=== PATIENT | female | born 1970 | race Caucasian/White ===

== ENCOUNTER 2017-04-15 15:36 | Outpatient (CLI) | payer OTHER ==
--- NOTE | 2017-04-27 19:21 | Mammography Report ---
DIGITAL SCREENING MAMMOGRAM: 04/15/2017 CLINICAL INDICATION: A 46-year-old with history of late childbearing for screening. COMPARISON: Films from [place], [place] dated 02/24/2016, 01/01/2015, 12/26/2014, 09/26/2013, 09/21/2012. TECHNIQUE: Routine CC and MLO projections were obtained of the breasts. The breasts again demonstrate scattered fibroglandular densities bilaterally. Coarse and punctate, t ypically benign calcifications are present. No suspicious masses, clustered microcalcifications, or regions of architectural distortion are identified. IMPRESSION: BENIGN FINDINGS. RECOMMENDATION: ROUTINE ANNUAL SCREENING UNLESS OTHERWISE CLINICALLY INDICATED. BIRADS CATEGORY: 2, BENIGN FINDINGS. STANDARD QUALIFYING STATEMENTS 1. This examination was reviewed with the aid of Computed-Aided Detection (CAD). 2. A negative or benign imaging report should not delay biopsy if clinically suspicious findings are present. Consider surgical consultation if warranted. More than 5% of cancers are not identified b y imaging. 3. Dense breasts may obscure an underlying neoplasm. JOB #: [id number] EXT JOB #:[id number]
== END 2017-04-15 15:37 | disposition home or self-care (01) ==
LOC: DI.N 15:36
PROVIDERS: ATTEND Physician Assistant Medical
DX: Z12.31 Encounter for screening mammogram for malignant neoplasm of breast (principal)
CPT/HCPCS: 77067

== ENCOUNTER 2018-05-10 16:03 | Outpatient (CLI) | payer OTHER ==
--- NOTE | 2018-05-11 09:59 | Mammography Report ---
Reason: SCREENING MAMMO Procedure Date: 05/10/2018 Accession Number: [id number] / [id number] Procedure: MGN - Screening Mammo Dig Bilat CPT Code: FULL RESULT: EXAM: Screening Mammo Dig Bilat DATE: 05/10/2018 4:25 PM CLINICAL HISTORY: 47-year-old female with history of early menses and late childbearing. TECHNIQUE: Bilateral CC and MLO views were obtained. COMPARISON: 04/15/2017, 02/24/2016, 01/01/2015, 12/26/2014. FINDINGS: The breasts demonstrate scattered fibroglandular densities bilaterally. Typically benign coarse calcifications are seen bilaterally. No suspicious masses, clustered microcalcifications, or regions of architectural distortion are identified. IMPRESSION: Benign findings RECOMMENDATION: Routine annual screening unless otherwise clinically indicated. BIRADS CATEGORY 2: Benign findings STANDARD QUALIFYING STATEMENTS: 1. This examination was not reviewed with the aid of Computer-Aided Detection (CAD). 2. A negative or benign imaging report should not delay biopsy if clinically suspicious findings are present. Consider surgical consultation if warrented. More than 5% of cancers are not identified by imaging. 3. Dense breasts may obscure an underlying neoplasm.
== END 2018-05-10 16:04 | disposition home or self-care (01) ==
LOC: DI.N 16:03
DX: Z12.31 Encounter for screening mammogram for malignant neoplasm of breast (principal)
CPT/HCPCS: 77067

== ENCOUNTER 2019-06-23 16:01 | Outpatient (CLI) | payer OTHER ==
--- NOTE | 2019-06-26 08:49 | Mammography Report ---
Reason: SCREENING MAMMO Procedure Date: 06/23/2019 Accession Number: [id number] / [id number] Procedure: MGN - Screening Mammo Dig Bilat CPT Code: Final Report FULL RESULT: EXAM: Screening Mammo Dig Bilat DATE: 06/23/2019 4:20 PM CLINICAL HISTORY: Routine screening. No reported personal or family history of breast cancer. TECHNIQUE: (B) - Bilateral CC and MLO views were obtained. COMPARISON: 05/10/2018 through 09/21/2012. PARENCHYMAL PATTERN: (A) - The breasts demonstrate scattered fibroglandular densities bilaterally. FINDINGS: Right breast: There is an 11 mm one view asymmetry seen lateral right CC view only, 9.5 cm from the nipple. No suspicious calcifications or areas of distortion. Left breast: There are no suspicious masses, calcifications, or areas of distortion. IMPRESSION: Right breast: 11 mm one view asymmetry lateral right breast as detailed. Incomplete examination. BI-RADS category 0. Additional imaging and possible ultrasound recommended. Left breast: Negative. BI-RADS Category 1. Recommend annual screening mammography. RECOMMENDATION: ([facility]) - Additional views using both Mammography and Ultrasound recommended. BI-RADS CATEGORY: (0) - Incomplete Examination - need additional evaluation. STANDARD QUALIFYING STATEMENTS: 1. This examination was not reviewed with the aid of Computer-Aided Detection (CAD). 2. A negative or benign imaging report should not preclude biopsy if clinically suspicious findings are present. 3. Dense breasts may obscure an underlying neoplasm. 4. This examination was reviewed without the aid of 3D breast imaging (tomosynthesis).
== END 2019-06-23 16:02 | disposition home or self-care (01) ==
LOC: DI.N 16:01
DX: Z12.31 Encounter for screening mammogram for malignant neoplasm of breast (principal); R92.8 Other abnormal and inconclusive findings on diagnostic imaging of breast
CPT/HCPCS: 77067

== ENCOUNTER 2019-07-12 09:00 | Outpatient (CLI) | payer BC, OTHER ==
--- NOTE | 2019-07-12 10:43 | Mammography Report ---
Reason: ABN MAMMO - SPEC VIEWS RT Procedure Date: 07/12/2019 Accession Number: [id number] / [id number] Procedure: DEVONTE - Diag Special Views Dig RT CPT Code: Final Report FULL RESULT: EXAM: Diag Special Views Dig RT DATE: 07/12/2019 10:00 AM CLINICAL HISTORY: The patient is an asymptomatic 48-year-old female recalled from screening mammogram (06/23/2019) for diagnostic evaluation of the right breast. TECHNIQUE: (B) - Bilateral CC and MLO views were obtained. COMPARISON: 05/10/2018,, 02/24/2016, 12/26/2014, 04/15/2017 PARENCHYMAL PATTERN: (A) - The breasts demonstrate scattered fibroglandular densities bilaterally. FINDINGS: The described asymmetry dissipates on targeted diagnostic imaging. The appearance is consistent with overlapping glandular tissue. The parenchymal pattern is stable since prior studies given interval involution. There are no suspicious masses, calcifications, or areas of distortion. IMPRESSION: Benign findings. BI-RADS category 2. RECOMMENDATION: (ANNUAL) - Recommend routine annual screening mammography. BI-RADS CATEGORY: (2) - Benign Findings. STANDARD QUALIFYING STATEMENTS: 1. This examination was not reviewed with the aid of Computer-Aided Detection (CAD). 2. A negative or benign imaging report should not preclude biopsy if clinically suspicious findings are present. 3. Dense breasts may obscure an underlying neoplasm. 4. This examination was reviewed the aid of 3D breast imaging (tomosynthesis).
== END 2019-07-12 09:01 | disposition home or self-care (01) ==
LOC: DI 09:00
PROVIDERS: ATTEND Physician Assistant Medical
DX: R92.8 Other abnormal and inconclusive findings on diagnostic imaging of breast (principal)

== ENCOUNTER 2020-08-28 15:02 | Outpatient (CLI) | payer OTHER ==
--- NOTE | 2020-08-29 08:00 | Mammography Report ---
BILATERAL DIGITAL SCREENING MAMMOGRAM 3D/2D: 08/28/2020 CLINICAL: Routine screening. Comparison is made to exams dated: 07/12/2019 mammogram, 06/23/2019 mammogram, 05/10/2018 mammogram, mammogram, and 02/24/2016 mammogram - [facility]. There are scattered fibr oglandular elements in both breasts. There is a 5 mm round asymmetry with a circumscribed margin in the left breast at 7 o'clock middle de pth. This is increased in size. No other significant masses, calcifications, or other findings are seen in either breast. IMPRESSION: INCOMPLETE: NEEDS ADDITIONAL IMAGING EVALUATION The 5 mm round asymmetry in the left breast most likely is a cyst and is indeterminate. Additional v iews with possible ultrasound are recommended. This exam was interpreted at Station ID: [id number]. NOTE: For mammograms, a report in lay terms will be sent to the patient. Approximately 15% of breast malignancies will not be visualized mammographically. In the management of a palpable breast mass, a negative mammogram must not discourage biopsy of a clinically suspicious lesion. Electronically Signed By: Chapis miranda/jairo:08/28/2020 17:15:34 ACR BI-RADS Category 0: Incomplete 3340F PARENCHYMAL PATTERN: (A) - The breast(s) demonstrate(s) scattered fibroglandular densities. BI-RADS CATEGORY: (0) - 0 Mammo and [place] [id number] Immediate follow-up LATERALITY: (B)
== END 2020-08-28 15:03 | disposition home or self-care (01) ==
LOC: DI.N 15:02
DX: Z12.31 Encounter for screening mammogram for malignant neoplasm of breast (principal); N64.89 Other specified disorders of breast
CPT/HCPCS: 77067

== ENCOUNTER 2020-09-25 08:46 | Outpatient (CLI) | payer OTHER ==
--- NOTE | 2020-09-26 09:47 | Mammography Report ---
UNILATERAL LEFT DIGITAL DIAGNOSTIC MAMMOGRAM 3D/2D: 09/25/2020 CLINICAL: Additional evaluation requested from prior study. Patient returns today to evaluate an asym metry in left breast. Comparison is made to exams dated: 08/28/2020 mammogram, 07/12/2019 mammogram, 06/23/2019 mammogram, mammogram, 04/15/2017 mammogram, and 02/24/2016 mammogram - [facility]. The re are scattered fibroglandular elements in left breast. There is a 5 mm round asymmetry with a circumscribed margin in the left breast at 7 o'clock middle de pth. This is confirmed in additional views. This has increased in size since remote prior studies. No other significant masses or calcifications are seen in the breast. IMPRESSION: INCOMPLETE: NEEDS ADDITIONAL IMAGING EVALUATION The 5 mm round asymmetry in the left breast most likely is a cyst but remains indeterminate. An ult rasound is recommended. This was performed immediately following this exam. This exam was interpreted at Station ID: [id number]. NOTE: For mammograms, a report in lay terms will be sent to the patient. Approximately 15% of breast malignancies will not be visualized mammographically. In the management of a palpable breast mass, a negative mammogram must not discourage biopsy of a clinically suspicious lesion. Electronically Signed By: Chapis miranda/:09/25/2020 09:38:42 ACR BI-RADS Category 0: Incomplete 3340F PARENCHYMAL PATTERN: (A) - The breast(s) demonstrate(s) scattered fibroglandular densities. BI-RADS CATEGORY: (0) - 0 Ultrasound [id number] Immediate follow-up LATERALITY: (B)
--- NOTE | 2020-09-26 09:47 | Ultrasound Report ---
LIMITED ULTRASOUND OF LEFT BREAST: 09/25/2020 CLINICAL: Patient returns for additional imaging over a suspected mass in the left breast. Comparison is made to exams dated: 09/25/2020 mammogram, 08/28/2020 mammogram, 07/12/2019 mammogram, 1 08/23/2018 mammogram, 05/10/2018 mammogram, and 04/15/2017 mammogram - [facility]. Color flow and real-time ultrasound of the left breast 8 o'clock region were performed. Aguero scale images of the real-time examination were reviewed. There is a benign 0.5 cm x 0.5 cm x 0.4 cm oval cyst in the left breast at 8 o'clock posterior depth 7 cm from the nipple. This oval cyst is hypoechoic. This correlates with mammography findings. Col or flow imaging demonstrates that there is no vascularity present. IMPRESSION: BENIGN There is no sonographic evidence of malignancy. The 0.5 cm cyst in the left breast corresponds to the mammographic finding and is benign. Return to annual mammogram screening schedule is recommended. Findings and recommendations were conveyed to the patient at time of exam. This exam was interpreted at Station ID: [id number]. Electronically Signed By: Chapis miranda/:09/25/2020 10:25:27 Ultrasound BI-RADS: 2 Benign BI-RADS CATEGORY: (2) - 2 Mammogram [id number] return to screening LATERALITY: (B)
== END 2020-09-25 08:47 | disposition home or self-care (01) ==
LOC: DI 08:46
PROVIDERS: ATTEND Physician Assistant Medical
DX: R92.8 Other abnormal and inconclusive findings on diagnostic imaging of breast (principal)

== ENCOUNTER 2022-05-21 08:14 | Outpatient (CLI) | payer OTHER ==
--- NOTE | 2022-05-21 10:22 | Mammography Report ---
BILATERAL DIGITAL SCREENING MAMMOGRAM 3D/2D: 05/21/2022 CLINICAL: Routine screening. Comparison is made to exams dated: 09/25/2020 ultrasound, 09/25/2020 mammogram, 08/28/2020 mammogram, 09/11/2018 mammogram, 06/23/2019 mammogram, and 05/10/2018 mammogram - [facility]. There are scattered areas of fibroglandular density in both breasts (category b / 25%-50% glandular t issue). No significant masses, calcifications, or other findings are seen in either breast. There has been no significant interval change. IMPRESSION: NEGATIVE There is no mammographic evidence of malignancy. A 1 year screening mammogram is recommended. Based on the Tyrer Cuzick model (a risk assessment model) the patients lifetime risk is 15.0% and he r 10 year risk is 3.6%. According to the ACR, ACS, and NCCN guidelines, an annual breast MRI exam asher ng with mammogram is recommended if the patients lifetime risk is 20% or greater. This exam was interpreted at Station ID: [id number]. NOTE: For mammograms, a report in lay terms will be sent to the patient. Approximately 15% of breast malignancies will not be visualized mammographically. In the management of a palpable breast mass, a negative mammogram must not discourage biopsy of a clinically suspicious lesion. Electronically Signed By: Drew [email or web address]/[email or web address]:05/21/2022 10:01:58 ACR BI-RADS Category 1: Negative 3341F PARENCHYMAL PATTERN: (A) - The breast(s) demonstrate(s) scattered fibroglandular densities. BI-RADS CATEGORY: (1) - 1 RECOMMENDATION: (ANNUAL) - Recommend routine annual screening mammography. [id number] 1 year screening LATERALITY: (B)
== END 2022-05-21 08:15 | disposition home or self-care (01) ==
LOC: DI.N 08:14
DX: Z12.31 Encounter for screening mammogram for malignant neoplasm of breast (principal)

== ENCOUNTER 2023-07-27 10:24 | Day surgery (SDC) | payer OTHER ==
[2023-07-27 10:43] LABS: HCG UR QUAL NEGATIVE
[2023-07-27] MEDS ORDERED: LACTATED RINGERS 1,000 ML IV ONE (10:54)
--- NOTE | 2023-07-27 12:12 | ANESTHESIA ---
Pre-Anesthesia VS, & Labs - Diagnosis screening - Procedure colonoscopy Vital Signs: Temp Pulse Resp BP Pulse Ox O2 Flow Rate 36.2 C L 86 15 135/84 H 100 07/27/23 10:45 07/27/23 10:45 07/27/23 10:45 07/27/23 10:45 07/27/23 10:45 Height: 5 ft Weight (kg): 85.5 kg Body Mass Index: 36.8 BMI Classification: Obese - NPO Other (prep as directed, last at 3pm yesterday) - Is Patient ?: No Home Medications and Allergies Home Medications: Ambulatory Orders Rosuvastatin Calcium [Crestor] 10 mg PO DAILY 07/26/23 Aspirin [Vazalore] 81 mg PO 07/27/23 Lisinopril [Zestril] 10 mg PO 07/27/23 Rosuvastatin Calcium [Crestor] 10 mg PO DAILY 07/26/23 Aspirin [Vazalore] 81 mg PO 07/27/23 Lisinopril [Zestril] 10 mg PO 07/27/23 Allergies/Adverse Reactions: Allergies Allergy/AdvReac Type Severity Reaction Status Date / Time No Known Drug Allergies Allergy Verified 07/26/23 13:29 Anes History & Medical History - Anesthetic History Anesthesia Complications: reports: No previous complications - Medical History Cardiovascular: reports: High cholesterol Pulmonary: reports: None Gastrointestinal: reports: None Urinary: reports: None 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, 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) Musculoskeletal: reports: None Endocrine/Autoimmune: reports: None Skin: reports: None Smoking Status: Never smoker Psychosocial: reports: Alcohol (occasional) History of Cancer?: No - Surgical History Eyes Ears Nose Throat (EENT): reports: Tonsil/Adenoidectomy Exam General: Alert Dental: WNL Mouth Opening: Greater than 4 Fingerbreadths Neck Mobility: Normal Mallampati classification: II Thyromental Distance: greater than 6 cm Respiratory: Lungs clear Cardiovascular: Regular rate, Normal S1, Normal S2 Plan Anesthesia Type: Total IV Consent for Procedure(s) Verified and Reviewed: Yes Code Status: Attempt Resuscitation ASA classification: 2-Mild systemic disease Is this case an emergency?: No
[2023-07-27] MEDS ORDERED: PROPOFOL 500 MG/50 ML 500 MG/50 ML VIAL ONE (12:29)
[2023-07-27] MEDS ORDERED: LACTATED RINGERS 800 ML IV ONE (12:57)
[2023-07-27 13:10] VITALS: BP 119/57; O2SAT 98
--- NOTE | 2023-07-27 14:08 | ANESTHESIA POST OP EVALUATION ---
Anesthesia Post Eval - Post Anesthesia Eval Vitals: Last Vital Signs Temp 36.5 C 07/27/23 12:57 Pulse 78 07/27/23 13:10 Resp 16 07/27/23 13:10 BP 119/57 L 07/27/23 13:10 Pulse Ox 98 07/27/23 13:10 O2 Flow Rate CV Function Including HR & BP: Stable Pain Control: Satisfactory Nausea & Vomiting: Negative Mental Status: Baseline Respiratory Status: Airway Patent Hydration Status: Satisfactory Anesthesia Complications: None
== END 2023-07-27 10:25 | disposition home or self-care (01) ==
LOC: SDS 10:24
PROVIDERS: ATTEND Surgery
PROC: 0DBH8ZZ Excision of Cecum, Via Natural or Artificial Opening Endoscopic (ICD-10-PCS; principal; 2023-07-27 11:30)
DX: Z12.11 Encounter for screening for malignant neoplasm of colon (principal); D12.0 Benign neoplasm of cecum; E66.9 Obesity, unspecified; Z68.36 Body mass index [BMI] 36.0-36.9, adult; Z86.73 Personal history of transient ischemic attack (TIA), and cerebral infarction without residual deficits
CPT/HCPCS: 45385; 81025; J7120

== ENCOUNTER 2023-11-09 15:04 | Outpatient (CLI) | payer OTHER ==
--- NOTE | 2023-11-10 09:53 | Mammography Report ---
BILATERAL DIGITAL SCREENING MAMMOGRAM 3D/2D: 11/09/2023 CLINICAL: Routine screening. Comparison is made to exams dated: 05/21/2022 mammogram, 09/25/2020 ultrasound, 09/25/2020 mammogram, mammogram, 07/12/2019 mammogram, and 06/23/2019 mammogram - [facility]. There are scattered areas of fibroglandular density in both breasts (category b / 25%-50% glandular t issue). No significant masses, calcifications, or other findings are seen in either breast. There has been no significant interval change. IMPRESSION: NEGATIVE There is no mammographic evidence of malignancy. A 1 year screening mammogram is recommended. Based on the Tyrer Cuzick model (a risk assessment model) the patient's lifetime risk is 15.0% and he r 10 year risk is 4.0%. According to the ACR, ACS, and NCCN guidelines, an annual breast MRI exam asher ng with mammogram is recommended if the patient's lifetime risk is 20% or greater. This exam was interpreted at Station ID: [id number]. NOTE: For mammograms, a report in lay terms will be sent to the patient. Approximately 15% of breast malignancies will not be visualized mammographically. In the management of a palpable breast mass, a negative mammogram must not discourage biopsy of a clinically suspicious lesion. Electronically Signed By: Vineet escobar/jairo:11/10/2023 09:04:55 letter sent: No_Letter ACR BI-RADS Category 1: Negative 3341F PARENCHYMAL PATTERN: (A) - The breast(s) demonstrate(s) scattered fibroglandular densities. BI-RADS CATEGORY: (1) - 1 RECOMMENDATION: (ANNUAL) - Recommend routine annual screening mammography. [id number] 1 year screening LATERALITY: (B)
== END 2023-11-09 15:05 | disposition home or self-care (01) ==
LOC: DI.N 15:04
DX: Z12.31 Encounter for screening mammogram for malignant neoplasm of breast (principal); R92.323 Mammographic fibroglandular density, bilateral breasts